=== PATIENT | male | born 1960 | race Caucasian/White ===

== ENCOUNTER 2023-06-16 06:09 | Emergency (ER) | payer BC ==
[2023-06-16] MEDS ORDERED: Sodium Chloride 0.9% 1000 ML 1,000 ML IV STA (06:25)
[2023-06-16 06:28] VITALS: TEMP 97.4
[2023-06-16] MEDS ORDERED: Sodium Chloride 0.9% 1000 ML 1,000 ML ONE (06:34)
[2023-06-16 06:38] LABS: Absolute Neutrophil Ct (ANC) 5.26 x10^3/uL (1.4-6.9); BASOPHIL % 0.9 % (0.0-0.4); Basophil (Absolute #) 0.08 x10^3/uL (0-0.4); Eosinophil % 4.6 % (0.00-5.0); Eosinophil (Absolute #) 0.42 x10^3/uL (0-0.5); Hematocrit 44.4 % (42-50); Hemoglobin 15.1 g/dL (12.5-18.0); IMMATURE GRAN # 0.05 x10^3u/L (0.00-0.03); IMMATURE GRAN % 0.5 % (0.00-0.4); Lymphocyte (Absolute #) 2.81 x10^3/uL (1.0-4.6); Lymphocytes % 30.5 % (24.0-44.0); Mean Cell Volume 86.9 fL (78-100); Mean Corpuscular Hemoglobin 29.5 pg (26-32); Mean Platelet Volume 9.8 fL (7.5-11.0); Monocyte (Absolute #) 0.59 x10^3/uL (0.0-1.3); Monocytes % 6.4 % (0.0-12.0); Neutrophil % 57.1 % (36.0-66.0); Platelet Count 362 x10^3/uL (150-450); Red Blood Count 5.11 x10^6/uL (4.1-5.6); Red Cell Distribution Width 12.1 % (11.5-14.0); White Blood Count 9.2 x10^3/uL (4.0-10.5)
--- NOTE | 2023-06-16 06:38 | ERPHSYRPT ---
- History of Present Illness Source: patient Exam Limitations: no limitations Patient Subjective Stated Complaint: L sided flank pain since 399, denies vomiting and diarrhea Triage Nursing Assessment: pt ambulatory to bed by self, pt alert and oriented x3, skin pwd, pt c/o L sided flank pain that pt describes as cramping, pt denies any urinary symptoms, denies vomiting and diarrhea, patient rating pain 3/10 Timing/Duration: hour(s) (2) Method of Injury: unknown Quality: radiating, aching, stabbing Back Pain Location: lumbar spine Severity of Pain-Max: severe Severity of Pain-Current: mild Modifying Factors: Improves With: nothing Associated Symptoms: No fever, No chills, No sweating, No urinary incontinence, No loss of bowel control, No constipation, No nausea, No vomiting, No problems urinating, No light-headedness, No dizziness, No numbness in legs/feet, No weakness, No sensory/motor loss, No tingling in legs/feet, No lower back pain, No muscle spasms Previous symptoms: no prior history, no recent treatment Hx Tetanus, Diphtheria Vaccination/Date Given: Yes Hx Influenza Vaccination/Date Given: Yes Hx Pneumococcal Vaccination/Date Given: Yes Immunizations Up to Date: Yes <NIDHI DAVIS - Last Filed: 06/16/23 06:48> <GERMANIA LEES - Last Filed: 06/16/23 07:58> - History of Present Illness Time Seen by Provider: 06/16/23 06:16 Physician History: Patient woke up with left-sided back pain of sudden onset, intermittent in nature, and very severe over the past 2 hours. Symptoms improved on his way into the emergency department, but he came in for further evaluation is never had this type of pain in the past although he has known multiple people with kidney stones and he was concerned that this may be causing his symptoms (NIDHI DAVIS) Allergies/Adverse Reactions: No Known Drug Allergies Allergy (Verified 06/16/23 06:17) Travel Risk - International Travel Have you traveled outside of the country in past 3 weeks: No - Coronavirus Screening Are you exhibiting any of the following symptoms?: No Close contact with a COVID-19 positive Pt in past 14-21 Days: No - Vaccine Status Have you recieved a Covid-19 vaccination: Yes Lead Atg Developer: Moderna - Vaccination Dates Date of 2cond Vaccination (if applicable): 2021 <NIDHI DAVIS - Last Filed: 06/16/23 06:48> - Review of Systems Constitutional: No Fever, No Chills, No Lethargy Eyes: No Symptoms Ears, Nose, & Throat: No Symptoms Respiratory: No Cough, No Dyspnea Cardiac: No Chest Pain, No Edema, No Syncope Abdominal/Gastrointestinal: No Abdominal Pain, No Nausea, No Vomiting, No D iarrhea Genitourinary Symptoms: Flank Pain, No Dysuria, No Frequency, No Hematuria, No Testicle Pain Musculoskeletal: Back Pain, No Neck Pain Skin: No Rash Neurological: No Dizziness, No Focal Weakness, No Sensory Changes Psychological: No Symptoms Endocrine: No Symptoms All Other Systems: Reviewed and Negative <NIDHI DAVIS - Last Filed: 06/16/23 06:48> - Past Medical History Pertinent Past Medical History: Yes Neurological History: No Pertinent History ENT History: No Pertinent History Cardiac History: High Cholesterol, Hypertension Respiratory History: COPD Endocrine Medical History: Diabetes Type II Musculoskeletal History: No Pertinent History GI Medical History: GERD History: No Pertinent History Psycho-Social History: No Pertinent History Male Reproductive Disorders: Other Other Medical History: skin CA - Past Surgical History Past Surgical History: No Neuro Surgical History: No Pertinent History Cardiac: No Pertinent History Respiratory: No Pertinent History Gastrointestinal: No Pertinent History Genitourinary: No Pertinent History Musculoskeletal: No Pertinent History Male Surgical History: No Pertinent History - Social History Smoking Status: Former smoker Exposure to second hand smoke: No Drug Use: none Patient Lives Alone: Yes <NIDHI DAVIS - Last Filed: 06/16/23 06:48> - Physical Exam General Appearance: no apparent distress, alert Eye Exam: PERRL/EOMI, eyes nml inspection, No scleral icterus Ears, Nose, Throat Exam: pharynx normal Neck Exam: normal inspection, non-tender, supple, full range of motion, No meningismus, No midline tenderness Respiratory Exam: normal breath sounds, lungs clear, No respiratory distress Cardiovascular Exam: regular rate/rhythm, normal heart sounds Gastrointestinal Exam: soft, normal bowel sounds, No tenderness, No distention, No mass, No guarding, No pulsatile mass Extremity Exam: normal inspection, normal range of motion, pelvis stable, No calf tenderness, No pedal edema Peripheral Pulses: dorsalis-pedis (R): 2+, dorsalis-pedis (L): 2+ Neurologic Exam: alert, oriented x 3, cooperative, wood chopper II-XII nml as tested, normal mood/affect, nml station & gait, sensation nml, No motor deficits Skin Exam: normal color, warm, dry, No rash SpO2 Interpretation: normal SpO2: 97 O2 Delivery: Room Air <NIDHI DAVIS - Last Filed: 06/16/23 06:48> - Nursing Vital Signs Nursing Vital Signs: Initial Vital Signs Temperature 97.4 F 06/16/23 06:17 Pulse Rate 85 06/16/23 06:17 Respiratory Rate 17 06/16/23 06:17 Blood Pressure 167/90 06/16/23 06:17 O2 Sat by Pulse Oximetry 97 06/16/23 06:17 Pain Scale Pain Intensity 0 Ordered Tests: Active Orders 24 hr Category Date Time Status IV Insertion STAT Care 06/16/23 06:25 Active ABDOMEN AND PELVIS W/0 CONTRAS [CT] Stat Exams 06/16/23 06:26 Completed CBC W DIFF Stat Lab 06/16/23 06:21 Completed CMP Stat Lab 06/16/23 06:21 Completed CULTURE,URINE Stat Lab 06/16/23 06:35 Received LIPASE Stat Lab 06/16/23 06:21 Completed Lactic Acid Stat Lab 06/16/23 06:35 Completed PROTIME WITH INR Stat Lab 06/16/23 06:35 Completed UA W/RFX UR CULTURE Stat Lab 06/16/23 06:35 Completed Medication Summary Discontinued Medications Generic Name Dose Route Start Last Admin Trade Name Delbertq PRN Reason Stop Dose Admin Sodium Chloride 1,000 mls @ 999 mls/hr 06/16/23 06:25 06/16/23 06:35 Sodium Chloride 0.9% 1000 Ml IV 06/16/23 07:25 999 mls/hr .Q1H1M STA Administration Sodium Chloride Confirm 06/16/23 06:34 Sodium Chloride 0.9% 1000 Ml Administered 06/16/23 06:35 Dose 1,000 mls @ ud .ROUTE .K-MED ONE Lab/Rad Data: Laboratory Result Diagrams 06/16/23 06:21 06/16/23 06:21 Laboratory Results 06/16/23 06/16/23 06/16/23 Range/Units 06:35 06:35 06:35 WBC (4.0-10.5) x10^3/uL RBC (4.1-5.6) x10^6/uL Hgb (12.5-18.0) g/dL Hct (42-50) % MCV (78-100) fL MCH (26-32) pg MCHC (32-36) g/dL RDW (11.5-14.0) % Plt Count (150-450) x10^3/uL MPV (7.5-11.0) fL Gran % (36.0-66.0) % Immature Gran % (Auto) (0.00-0.4) % Nucleat RBC Rel Count (0.00-0.1) % Eos # (Auto) (0-0.5) x10^3/uL Immature Gran # (Auto) (0.00-0.03) x10^3u/L Absolute Lymphs (auto) (1.0-4.6) x10^3/uL Absolute Monos (auto) (0.0-1.3) x10^3/uL Absolute Nucleated RBC (0.00-0.01) x10^3u/L Lymphocytes % (24.0-44.0) % Monocytes % (0.0-12.0) % Eosinophils % (0.00-5.0) % Basophils % (0.0-0.4) % Absolute Granulocytes (1.4-6.9) x10^3/uL Basophils # (0-0.4) x10^3/uL PT 9.8 (9.4-12.5) SECONDS INR 0.89 (0.8-3.0) Sodium (137-145) mmol/L Potassium (3.5-5.1) mmol/L Chloride (98-107) mmol/L Carbon Dioxide (22-30) mmol/L Anion Gap (5-15) MEQ/L BUN (9-20) mg/dL Creatinine (0.66-1.25) mg/dL Estimated GFR ML/MIN Glucose (74-106) mg/dL Lactic Acid 2.3 H (0.4-2.0) Calcium (8.4-10.2) mg/dL Total Bilirubin (0.2-1.3) mg/dL AST (17-59) U/L ALT (0-50) U/L Alkaline Phosphatase (38-126) U/L Serum Total Protein (6.3-8.2) g/dL Albumin (3.5-5.0) g/dL Lipase (23-300) U/L Urine Color Yellow (Yellow) Urine Appearance Clear (Clear) Urine pH 5.5 (4.6-8.0) Ur Specific [place] 1.020 (1.005-1.030) Urine Protein Trace A (Negative) Urine Glucose (UA) >=1000 A (Negative) mg/dL Urine Ketones Negative (Negative) Urine Blood Large A (Negative) Urine Nitrite Negative (Negative) Urine Bilirubin Negative (Negative) Urine Urobilinogen 1.0 A (0.2) mg/dL Ur Leukocyte Esterase Negative (Negative) U Hyaline Cast (Auto) NONE SEEN (0-2) /LPF Urine Microscopic RBC 51-100 A (0-5) /HPF Urine Microscopic WBC 0-2 (0-5) /HPF Ur Epithelial Cells None Seen (None Seen) /HPF Urine Bacteria None Seen (None Seen) /HPF Urine Culture Reflexed YES (NO) 06/16/23 06/16/23 Range/Units 06:21 06:21 WBC 9.2 (4.0-10.5) x10^3/uL RBC 5.11 (4.1-5.6) x10^6/uL Hgb 15.1 (12.5-18.0) g/dL Hct 44.4 (42-50) % MCV 86.9 (78-100) fL MCH 29.5 (26-32) pg MCHC 34.0 (32-36) g/dL RDW 12.1 (11.5-14.0) % Plt Count 362 (150-450) x10^3/uL MPV 9.8 (7.5-11.0) fL Gran % 57.1 (36.0-66.0) % Immature Gran % (Auto) 0.5 H (0.00-0.4) % Nucleat RBC Rel Count 0.0 (0.00-0.1) % Eos # (Auto) 0.42 (0-0.5) x10^3/uL Immature Gran # (Auto) 0.05 H (0.00-0.03) x10^3u/L Absolute Lymphs (auto) 2.81 (1.0-4.6) x10^3/uL Absolute Monos (auto) 0.59 (0.0-1.3) x10^3/uL Absolute Nucleated RBC 0.00 (0.00-0.01) x10^3u/L Lymphocytes % 30.5 (24.0-44.0) % Monocytes % 6.4 (0.0-12.0) % Eosinophils % 4.6 (0.00-5.0) % Basophils % 0.9 (0.0-0.4) % Absolute Granulocytes 5.26 (1.4-6.9) x10^3/uL Basophils # 0.08 (0-0.4) x10^3/uL PT (9.4-12.5) SECONDS INR (0.8-3.0) Sodium 137 (137-145) mmol/L Potassium 4.5 (3.5-5.1) mmol/L Chloride 103 (98-107) mmol/L Carbon Dioxide 20 L (22-30) mmol/L Anion Gap 17.9 H (5-15) MEQ/L BUN 18 (9-20) mg/dL Creatinine 0.90 (0.66-1.25) mg/dL Estimated GFR > 60.0 ML/MIN Glucose 255 H (74-106) mg/dL Lactic Acid (0.4-2.0) Calcium 9.5 (8.4-10.2) mg/dL Total Bilirubin 0.50 (0.2-1.3) mg/dL AST 22 (17-59) U/L ALT 25 (0-50) U/L Alkaline Phosphatase 57 (38-126) U/L Serum Total Protein 6.9 (6.3-8.2) g/dL Albumin 4.3 (3.5-5.0) g/dL Lipase 113 (23-300) U/L Urine Color (Yellow) Urine Appearance (Clear) Urine pH (4.6-8.0) Ur Specific [place] (1.005-1.030) Urine Protein (Negative) Urine Glucose (UA) (Negative) mg/dL Urine Ketones (Negative) Urine Blood (Negative) Urine Nitrite (Negative) Urine Bilirubin (Negative) Urine Urobilinogen (0.2) mg/dL Ur Leukocyte Esterase (Negative) U Hyaline Cast (Auto) (0-2) /LPF Urine Microscopic RBC (0-5) /HPF Urine Microscopic WBC (0-5) /HPF Ur Epithelial Cells (None Seen) /HPF Urine Bacteria (None Seen) /HPF Urine Culture Reflexed (NO) - Progress Progress: improved, re-examined Counseled pt/family regarding: lab results, diagnosis, need for follow-up, rad results <GERMANIA LEES - Last Filed: 06/16/23 07:58> - Progress Progress Note: 06/16/23 07:55 CT scan of the abdomen pelvis without contrast shows nonobstructing ureteral or renal calculi. There is a small umbilical region hernia. No evidence of any acute intra-abdominal or intrapelvic abnormality. This patient's medical issue is 1 of moderate complexity. Level complexity in the work-up performed is based on review of the patient's past medical history, review of the patient's medication list, review the patient drug allergy list, history of present illness and physical findings on examination. The work-up was ordered by Dr. Davis. I reviewed the work-up results. Clinical impression is patient the patient has back pain and hematuria. We will start him on Cipro 500 mg orally twice a day and he will follow-up with his primary care doctor today to make arranges for further evaluation management. (GERMANIA LEES) Medical Desision Making - Diagnostic Testing Diagnostic test were ordered, analyzed, and reviewed by me: Yes Radiological Interpretation: Reviewed by me, Teleradiologist Report - Risk of complications The pt has a mod risk of morbidity or mortality based on: Need for prescription drug management <GERMANIA LEES - Last Filed: 06/16/23 07:58> - Departure Critical Care Time: No <NIDHI DAVIS - Last Filed: 06/16/23 06:48> - Departure Departure Disposition: Home <GERMANIA LEES - Last Filed: 06/16/23 07:58> - Departure Clinical Impression: Left flank pain, Hematuria Condition: Stable Referrals: [facility]IST[facility] BROOKS [NON-STAFF PHY W/O PRIVILEGES] - Follow up/PCP as directed Additional Instructions: Drink plenty of fluids. Take your antibiotics and other medication as prescribed. Follow-up with your primary care provider today, 06/16/2003, to make arranges for follow-up appointment for further evaluation management including referral to a urologist if indicated. Prescriptions: Ciprofloxacin [Cipro 500 MG] 500 mg PO BID #14 tablet
[2023-06-16 06:52] LABS: INR 0.89 (0.8-3.0); PROTIME 9.8 SECONDS (9.4-12.5)
[2023-06-16 06:53] LABS: ALBUMIN 4.3 g/dL (3.5-5.0); ALKALINE PHOSPHATASE 57 U/L (38-126); ANION GAP 17.9 MEQ/L (5-15); BLOOD UREA NITROGEN 18 mg/dL (9-20); CHLORIDE 103 mmol/L (98-107); Calcium 9.5 mg/dL (8.4-10.2); Carbon Dioxide 20 mmol/L (22-30); EST GLOMERULAR FILTRATION RATE > 60.0 ML/MIN; Glucose 255 mg/dL (74-106); LIPASE 113 U/L (23-300); Potassium 4.5 mmol/L (3.5-5.1); SGOT/AST 22 U/L (17-59); SGPT/ALT 25 U/L (0-50); SODIUM 137 mmol/L (137-145); Total Protein 6.9 g/dL (6.3-8.2)
[2023-06-16 07:03] LABS: Appearance Clear (Clear); Bacteria None Seen /HPF (None Seen); Bilirubin Negative (Negative); Blood Large (Negative); Epithelial Cells None Seen /HPF (None Seen); Glucose, Urine >=1000 mg/dL (Negative); Hyaline Casts NONE SEEN /LPF (0-2); Ketones Negative (Negative); Leukocyte Esterase Negative (Negative); Nitrite Negative (Negative); Ph 5.5 (4.6-8.0); Protein,Urine Dip Trace (Negative); RBC 51-100 /HPF (0-5); WBC 0-2 /HPF (0-5)
[2023-06-16 07:04] LABS: ADD URINE CULTURE? YES (NO)
[2023-06-16 07:35] VITALS: BP 140/80; PULSE 90; RESP 18; O2SAT 95
--- NOTE | 2023-06-16 07:46 | XRAY ---
CLINICAL HISTORY:Left flank pain COMPARISON:None TECHNIQUE:CT scan of the abdomen was performed without IV contrast.; Images were sent through PACs for interpretation. DLP: 982.00 FINDINGS: Liver shows fatty changes.No focal parenchymal abnormality. No hepatic mass is identified. The portal vein, intrahepatic biliary radicals, and bile ducts are normal. Gall bladder appears normal with wall thickness. No radio-opaque calculus or pericholecystic fluid was identified. Common bile appears normal. Pancreas appears normal. No peripancreatic fat stranding, pancreatic pseudocyst or peripancreatic fluid collection. Spleen normal in size, no mass seen. Both adrenal glands are unremarkable. Right renal lower pole and left renal upper pole tiny non-obstructing calculi are appreciated, maximally up to 1.9 mm. Kidneys are normal in size and shape. No hydronephrosis. Both ureters and urinary bladder appear normal. Stomach and small bowel loops are unremarkable. Caecum and ileocecal junction appear normal. Large bowel loops appear normal without evidence of bowel obstruction. The sigmoid and rectum appear normal. Appendix is visualized and appears unremarkable. Small fat containing umbilical region hernia of 12 mm with no herniated bowel loops noted . No evidence of significant enlargement of the mesenteric or retroperitoneal lymph nodes. Visualized pelvic organs appear unremarkable. The osseous structures in the pelvis and lower rib cage show no abnormality. No lytic or sclerotic bone lesions. Degenerative spondylosis is appreciated. Note is made of dense aortic intimal plaques. Centriacinar emphysematous changes noted in both lungs. Emphysematous bullae noted in the visualized Apical segment of right lower lobe with a bleb in the left basal segment . IMPRESSION: No obstructing calculus or hydronephrosis noted bilaterally. Tiny non-obstructing calculi measuring less than 2 mm noted in both kidneys. Small umbilical region hernia. Mild fatty changes noted in the liver. Emphysematous changes noted in the visualized basal segments of the lungs. Electronically Signed by: Yoan Lundberg MD. (06/16/2023 06:45:54 TRACK REPAIRER)
== END 2023-06-16 08:13 | disposition home or self-care (01) ==
LOC: ED 06:09
DX: R10.9 Unspecified abdominal pain (principal); R31.9 Hematuria, unspecified; M54.9 Dorsalgia, unspecified; E78.5 Hyperlipidemia, unspecified; I10 Essential (primary) hypertension; E11.9 Type 2 diabetes mellitus without complications
CPT/HCPCS: 36000; 36415; 74176; 80053; 81001; 83605; 83690; 85025; 85610; 87086; 96360; 99284